=== PATIENT | female | born 1975 | race Caucasian/White ===

== ENCOUNTER 2017-07-09 15:44 | Outpatient (CLI) | payer BC ==
[~2017-07-09 15:44] MED LIST: Magnevist 469MG/ML 20 ML VIAL ONE
--- NOTE | 2017-07-09 17:53 | MRI ---
PRE AND POSTCONTRAST ENHANCED MRI IMAGES OF BRAIN 07/09/17 HISTORY: Headaches, R51 and R42 vertigo. Pre and postcontrast enhanced MRI images of the brain obtained. No evidence of areas of diffusion restriction is seen. The brain is unremarkable. No evidence of intracranial masses, hemorrhages or strokes seen. No evidence of areas of contrast enhancement seen intracranially. IMPRESSION: Unremarkable pre and postcontrast enhanced MRI images of the brain. POS: [facility]
== END 2017-07-09 15:45 | disposition home or self-care (01) ==
LOC: SCSMRI 15:44
PROVIDERS: ATTEND Psychiatry & Neurology Neurology
DX: R51 Headache (principal); R42 Dizziness and giddiness
CPT/HCPCS: 70553; A9579